=== PATIENT | male | born 1965 | race Caucasian/White ===

== ENCOUNTER 2021-09-08 10:22 | Emergency (ER) | payer OTHER, SELFPAY ==
[2021-09-08 10:37] VITALS: BP 131/92; PULSE 86; RESP 18; TEMP 36.1; O2SAT 98
--- NOTE | 2021-09-08 10:43 | ED.URI ---
HPI - URI/Sore Throat General Chief Complaint: Upper Respiratory Infection Stated Complaint: cough,nasal drainage,coughing up phlegm Time Seen by Provider: 09/08/21 10:43 Source: patient Mode of arrival: ambulatory Limitations: no limitations History of Present Illness HPI Narrative: 56-year-old male presents with complaint of nasal congestion, postnasal drainage, cough for 10 days. Reports intermittent sinus pressure and pain. Not taking any daily antihistamines. Has been taking NyQuil past several nights to help him sleep. Denies fever chills. Reports yesterday was feeling bad but feeling better again today. All systems reviewed and negative except as noted above. Related Data Allergies Allergy/AdvReac Type Severity Reaction Status Date / Time No Known Allergies Allergy Verified 09/08/21 10:31 Review of Systems Review of Systems: CONSTITUTIONAL: Denies fever, chills, or sweats. EYES: Denies visual changes, redness, or discharge. ENT: Reports rhinorrhea, congestion. Denies sore throat, or otalgia. CARDIOVASCULAR: Denies chest pain, palpitations, or edema. RESPIRATORY: Reports cough. Denies dyspnea. GASTROINTESTINAL: Denies abdominal pain, nausea, vomiting, or diarrhea. GENITOURINARY: Denies dysuria or hematuria. SKIN: Denies rash or itching. MUSCULOSKELETAL: Denies back pain, joint pain, or myalgia. NEUROLOGIC: Denies headache, numbness, or weakness. PSYCHIATRIC: Denies anxiety or depression. All other systems reviewed are negative, except as documented in HPI. PMFSH Comments At time of signature, agree with nursing past medical, surgical, social and family history. There is no relevant family history pertinent to the presenting complaint. Exam Narrative: GENERAL: This is a well-nourished, well-developed patient, in no apparent distress. HEAD: normocephalic, atraumatic. EYES: PERRL. Sclera clear/white. Vision is grossly intact. EARS: External ears normal, auditory canals clear and without drainage, TMs normal without perforation. Hearing grossly intact. NOSE: External nose normal with clear nasal drainage, erythema to nares. Maxillary sinus tenderness. THROAT: Mucous membranes moist, erythema to posterior pharynx with yellow postnasal drainage. NECK: Neck supple, non-tender without lymphadenopathy, masses or thyromegaly. CARDIOVASCULAR: Regular rate and rhythm without murmurs, gallops, or rubs. RESPIRATORY: Clear to auscultation. Breath sounds equal bilaterally. No wheezes, rales, or rhonchi. SKIN: warm, Dry, intact with no suspicious lesions or rash, good texture and turgor. NEURO: awake, alert, and oriented to person, place and time. There were no obvious focal neurologic abnormalities. EXTREMITIES: Normal range of motion to all extremities. Course Course Level of Care: Express Care Visit Vital Signs Vital signs: Vital Signs Temperature 36.1 C L 09/08/21 10:37 Pulse Rate 86 09/08/21 10:37 Respiratory Rate 18 09/08/21 10:37 Blood Pressure 131/92 H 09/08/21 10:37 Pulse Oximetry 98 09/08/21 10:37 Temperature 36.1 C L 09/08/21 10:37 Pulse Rate 86 09/08/21 10:37 Respiratory Rate 18 09/08/21 10:37 Blood Pressure 131/92 H 09/08/21 10:37 Pulse Oximetry 98 09/08/21 10:37 Reviewed MDM - URI/Sore Throat MDM Narrative Medical decision making narrative: Patient is aware of diagnosis, understands and agrees to treatment plan. Anticipatory guidance given. Patient agrees to follow-up as directed and is aware of reasons to seek care at the emergency department. Portions of this record may have been created with voice recognition software Differential Diagnosis Differential diagnosis: Likely upper respiratory infection, sinusitis and viral infection Discharge Plan Discharge Clinical Impression: Acute sinusitis Patient Disposition: Home, Self-Care Condition: Stable Instructions: Sinusitis (ED) Additional Instructions: Take antibiotic as prescribed until gone. Take o
== END 2021-09-08 11:00 | disposition home or self-care (01) ==
PROVIDERS: Emergency Provider Nurse Practitioner Family
DX: J01.90 Acute sinusitis, unspecified (principal)
CPT/HCPCS: 99213; G0463